=== PATIENT | female | born 1965 | race Caucasian/White ===

== ENCOUNTER 2021-04-02 22:56 | Emergency (ER) | payer OTHER ==
[2021-04-03 00:31] LABS: SARS-CoV-2 NAA Rapid Test DETECTED (NotDetected)
== END 2021-04-03 00:17 | disposition home or self-care (01) ==
LOC: MADERS 22:56
DX: U07.1 COVID-19 (principal); I10 Essential (primary) hypertension
CPT/HCPCS: 0241U; 71045